=== PATIENT | male | born 2000 ===

== ENCOUNTER 2019-06-09 15:41 | Emergency (ER) | payer OTHER ==
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
[2019-06-09] MEDS ORDERED: MORPHINE 4 MG/1 ML INJ IV ONE (16:20)
[2019-06-09] MEDS ORDERED: ONDANSETRON 4 MG/2 ML INJ IV ONE (16:20)
[2019-06-09] MEDS ORDERED: SODIUM CHLORIDE 0.9% 1000 ML 1,000 ML IV ONE (16:20)
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
[2019-06-09 16:39] LABS: Basophils % (Auto) 0.5 % (0.0-1.8); Eosinophils # (Auto) 0.1 K/mm3 (0.0-0.4); Eosinophils % (Auto) 0.7 % (0.0-4.3); Hematocrit 46.4 % (35.5-45.6); Hemoglobin 15.9 gm/dl (11.8-15.2); Lymphocytes # (Auto) 1.1 K/mm3 (1.2-5.4); Lymphocytes % (Auto) 10.6 % (13.4-35.0); Mean Corpuscular HGB Conc 34 % (32-34); Mean Corpuscular Volume 91 fl (84-94); Monocytes # (Auto) 0.6 K/mm3 (0.0-0.8); Monocytes % (Auto) 6.1 % (0.0-7.3); Platelet Count 176 K/mm3 (140-440); Red Blood Count 5.11 M/mm3 (3.65-5.03); Red Cell Distribution Width 13.9 % (13.2-15.2)
[2019-06-09 16:55] LABS: Alanine Aminotransferase 18 units/L (7-56); Albumin 4.5 g/dL (3.9-5); BUN/Creatinine Ratio 19; Blood Urea Nitrogen 13 mg/dL (9-20); Calcium 9.5 mg/dL (8.4-10.2); Hemolysis Index 6
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
[2019-06-09 18:41] VITALS: BP 143/86
== END 2019-06-09 20:11 | disposition home or self-care (01) ==
LOC: ED 15:41
DX: M25.512 Pain in left shoulder (principal); R07.81 Pleurodynia; Z79.899 Other long term (current) drug therapy; V13.4XXA Pedal cycle driver injured in collision with car, pick-up truck or van in traffic accident, initial encounter; Y93.89 Activity, other specified; Y92.410 Unspecified street and highway as the place of occurrence of the external cause; Y99.8 Other external cause status
CPT/HCPCS: 36415; 70450; 71101; 72125; 73060; 74177; 80053; 83690; 85025; 96374; 96375; 99285; J2270; J2405; J7030; Q9967